=== PATIENT | male | born 1990 | race Asian ===

== ENCOUNTER 2019-08-16 02:25 | Emergency (ER) | payer OTHER ==
--- NOTE | 2019-08-16 03:49 | ED ---
Back Pain - HPI Summary HPI Summary: This patient is a 29 year old male presenting to [facility] with a chief complaint of backpain since one day ago. He states he hurt his back playing basketball when he fell on Saturday night. He states numbness in his left foot that began early today. He staets the pain was sudden onset. He initially signed off care from EMS at the initial incident but his pain has worsened since. He states he has not taken any pain medication. He states he had a similar injury a couple years ago and got better after rest, but this time its gotten worse. He states standing makes the pain worse. He states he iced it yesterday. - History of Current Complaint Chief Complaint: EDBackInjuryPain Stated Complaint: BACK PAIN PER PT Time Seen by Provider: 08/16/19 03:34 Hx Obtained From: Patient Onset/Duration: Sudden Onset, Lasting Days Onset/Duration: Traumatic Pain Intensity: 6 Pain Scale Used: 0-10 Numeric - Allergies/Home Medications Allergies/Adverse Reactions: Allergies Allergy/AdvReac Type Severity Reaction Status Date / Time No Known Allergies Allergy Verified 08/16/19 02:27 PMH/Surg Hx/FS Hx/Imm Hx Endocrine/Hematology History: Denies: Hx Diabetes Cardiovascular History: Denies: Hx Coronary Artery Disease - Immunization History Immunizations Up to Date: Yes Infectious Disease History: No Infectious Disease History: Denies: Traveled Outside the [place] in Last 30 Days - Family History Known Family History: Negative: Cardiac Disease - Social History Alcohol Use: Rare Substance Use Type: Reports: None Smoking Status (MU): Never Smoked Tobacco Review of Systems Positive: Other - Back pain Positive: Numbness All Other Systems Reviewed And Are Negative: Yes Physical Exam - Summary Physical Exam Summary: General: Thin MALE. No acute distress. HEENT: Normocephalic, Atraumatic. Eyes: Conjuctiva normal, PERRL. Ears: TMs within normal limits. Nares: (-) discharge, (-) erythema. Oropharynx: Clear, mucous membranes moist, (-) exudates. Neck: Soft, FROM, (-) lymphadenopathy, (-) thyromegaly, (-) JVD. Cardiovascular: Normal sinus rhythm, (-) murmur. Lungs: Clear to auscultation bilaterally (-) wheezes, (-) rales, (-) rhonchi. Abdomen: Soft, non-tender, non-distended, (-) organomegaly, normal bowel sounds. Back: (-) CVA tenderness Extremities: No edema. Skin: Warm, dry, (-) rash. Neuro: Alert and oriented x3, no focal deficits. Normal strength. Mildly diminished sensation in his LLE compared to the right. Good pulses. Psychiatric: Mood normal, affect normal. Triage Information Reviewed: Yes Vital Signs On Initial Exam: Initial Vitals Temp Pulse Resp BP Pulse Ox 98.5 F 99 16 120/81 97 08/16/19 02:27 08/16/19 02:27 08/16/19 02:27 08/16/19 02:27 08/16/19 02:27 Vital Signs Reviewed: Yes Procedures - Sedation Patient Received Moderate/Deep Sedation with Procedure: No Diagnostics - Vital Signs Vital Signs Temp Pulse Resp BP Pulse Ox 08/16/19 02:27 98.5 F 99 16 120/81 97 - Laboratory Lab Statement: Any lab studies that have been ordered have been reviewed, and results considered in the medical decision making process. - Radiology Lumbar Spine XR Radiology Interpretation Completed By: ED Physician Summary of Radiographic Findings: No obvious fracture. Pending official radiologist report. Re-Evaluation - Re-Evaluation First Eval Re-Evaluation Time: 05:08 Change: Improved Comment: Feels better after Tylenol and ice. Back Pain Course/Dx - Course Course Of Treatment: 29-year-old male with back pain. Left radicular symptoms. Patient's symptoms improved significantly with Toradol and ice. Lumbar x-ray is unremarkable. Advised patient to rest, ice to the area. Naproxen twice daily. Follow up with PCP. Follow up sooner for any worsening symptoms. - Diagnoses Provider Diagnoses: Low back pain, Left sided sciatica Discharge ED - Sign-Out/Discharge Documenting (check all that apply): Patient Departure - Discharge - Discharge Plan Condition: Stable Disposition: HOME Prescriptions: Naproxen [Naproxen 500 mg tab] 500 mg PO BID #60 tablet. Patient Education Materials: Sciatica (ED) Referrals: [facility] [Provider Group] Additional Instructions: Ice on and off every 20 minutes. - Billing Disposition and Condition Condition: STABLE Disposition: Home - Attestation Statements Document Initiated by Scribe: Yes Documenting Scribe: Sudheer Saavedra Provider For Whom Scribe is Documenting (Include Credential): Jacque Wheeler MD Scribe Attestation: I, Sudheer Saavedra, scribed for Jacque Wheeler MD on 08/16/19 at 0625. Scribe Documentation Reviewed: Yes Provider Attestation: The documentation as recorded by the scribe, Sudheer Saavedra accurately reflects the service I personally performed and the decisions made by me, Jacque Wheeler MD Status of Scribe Document: Viewed
[2019-08-16] MEDS ORDERED: Ketorolac INJ* 30 MG/ML 1 ML VIAL IM ONE (04:03)
[2019-08-16 05:26] VITALS: BP 101/54
== END 2019-08-16 05:25 | disposition home or self-care (01) ==
LOC: ED 02:25
DX: M54.42 Lumbago with sciatica, left side (principal); M51.37 Other intervertebral disc degeneration, lumbosacral region
CPT/HCPCS: 72110; 96372; 99282; J1885